=== PATIENT | female | born 1965 | race Caucasian/White ===

== ENCOUNTER 2018-06-24 10:00 | Outpatient (CLI) | payer MEDICAID | END 2018-06-24 11:00 | disposition home or self-care (01) | LOC: D.MAMMO 10:00 | PROVIDERS: ATTEND Emergency Medicine | DX: Z12.31 Encounter for screening mammogram for malignant neoplasm of breast (principal) ==

== ENCOUNTER → 2018-06-27 13:32 | Outpatient (CLI) | payer MEDICAID ==
--- NOTE | 2018-06-30 09:13 | EC ---
PATIENT:FLORENCE QUINONES DATE OF SERVICE: 06/27/18 SEX: F MEDICAL RECORD: [id number] DATE OF : 69 LOCATION:[facility] AGE OF PATIENT: 53 ADMISSION DATE: 06/27/18 REFERRING PHYSICIAN: INTERPRETING PHYSICIAN: SPIKE SOTO MD ECHOCARDIOGRAM REPORT ECHO CHARGES 4 ECHO COMPLETE Date: 06/27/18 CLINICAL DIAGNOSIS: DYSPNEA, MURMUR, HX OF HTN ECHOCARDIOGRAPHIC MEASUREMENTS (adult normal given) AC root (d.<3.7cm) 3.8 cm LV Septum d (<1.2 cm> 1.8 cm Valve Excursion 1.3 cm LV Septum (systole) 2.2 cm Left Atria (s.<4.0cm> 4.2 cm LVPW d(<1.2cm) 1.9 cm RV (d.<2.3cm) 2.9 cm LVPW (sytole) 2.5 cm LV diastole(<5.6CM) 5.0 cm MV E-F(>70mm/sec) cm LV systole 3.5 cm LVOT Diameter 2.0 cm MV exc.(>10mm) 1.9 cm Est.ejection fraction (50-75%) % DOPPLER: LVIT cm/sec A 80.0 cm/sec E 92.0 cm/sec LA cm/sec RVSP 18 mmHg LVOT 85 cm/sec AOP1/2T m/s Asc. Ao cm/sec RVOT 69 cm/sec RA cm/sec PA 95 cm/sec AV Gradient Peak 5.55 mmHg AV Mean 3.06 mmHg AV Area 2.2 cm MV Gradient Peak 2.75 mmHg MV Mean 1.63 mmHg MV Area cm COMMENTS: Warp Tension Tester: 2 YASEMIN BATEMAN Starch Factory Laborer: 3 Dr. Sage TAPE# PACS Pericardial Effusion N DATE OF SERVICE: Adequate 2D echo, color flow, spectral Doppler, and M-Mode LVH is present. LV internal dimension is normal. Wall motion is normal. EF is greater than or equal to 55%. Aortic valve is tricuspid. No evidence of stenosis by Doppler interrogation. Left atrium is minimally dilated at 4.2 cm. Mitral valve shows no prolapse. Trace MR. Right-sided chambers grossly normal. Trace TR. ECHOCARDIOGRAM REPORT [id number] FLORENCE QUINONES TRANSINT:[id number] Voice Confirmation ID: [id number] DOCUMENT ID: [id number] SPIKE SOTO MD at 0913 CC: [id number] DICTATION DATE: 06/29/18 1012 SKOOG PATCHING MACHINE OPERATOR: 06/29/18 1225 DEP CLI 06/27/18 [place] [id number] [place] [id number]
--- NOTE | 2018-06-30 09:13 | ST ---
PATIENT:FLORENCE QUINONES MEDICAL RECORD: [id number] SEX: F LOCATION:[facility] ORDER #: ADMISSION DATE: 06/27/18 AGE OF PATIENT: 53 REFERRING PHYSICIAN: INTERPRETING PHYSICIAN: SPIKE SOTO MD DATE OF SERVICE: 06/27/2018 PROCEDURE: Treadmill stress test. Baseline ECG is normal. Exercised for 9 minutes via Mychal protocol. Maximum heart rate 155 beats per minute, greater than 85% of max predicted. No ECG change for ischemia. No symptoms of ischemia. Normal blood pressure response to exercise. No arrhythmias noted. Good exercise tolerance for age. TRANSINT:[id number] Voice Confirmation ID: [id number] DOCUMENT ID: [id number] SPIKE SOTO MD at 0913 CC: [id number] DICTATION DATE: 06/29/18 1020 AIRCRAFT MECHANIC: 06/29/18 1239 DEP CLI 06/27/18 [facility] [address] [place] [address]
== END | disposition home or self-care (01) ==
LOC: D.HCCARDIO 13:30
PROVIDERS: ATTEND Internal Medicine Interventional Cardiology
DX: I20.9 Angina pectoris, unspecified (principal)

== ENCOUNTER → 2018-07-08 10:20 | Outpatient (CLI) | payer MEDICAID | END | disposition home or self-care (01) | LOC: D.US 10:00 | PROVIDERS: ATTEND Internal Medicine Interventional Cardiology | DX: R09.89 Other specified symptoms and signs involving the circulatory and respiratory systems (principal) ==

== ENCOUNTER → 2020-06-28 09:34 | Outpatient (CLI) | payer MEDICAID | END | disposition home or self-care (01) | LOC: D.HCCECHO 09:34 | DX: I10 Essential (primary) hypertension (principal) ==